=== PATIENT | male | born 1975 | race Two or more races ===

== ENCOUNTER 2018-07-25 16:56 | Emergency (ER) | payer SELFPAY ==
[2018-07-25 17:08] VITALS: BP 149/92
[2018-07-25] MEDS ORDERED: ACETAMINOPHEN 500 MG TAB PO ONE (18:15)
== END 2018-07-25 18:35 | disposition home or self-care (01) ==
LOC: EDBD 16:56 → ER 16:59
DX: S39.011A Strain of muscle, fascia and tendon of abdomen, initial encounter (principal); S86.912A Strain of unspecified muscle(s) and tendon(s) at lower leg level, left leg, initial encounter; V43.52XA Car driver injured in collision with other type car in traffic accident, initial encounter; Y93.89 Activity, other specified; Y99.8 Other external cause status; Y92.410 Unspecified street and highway as the place of occurrence of the external cause
CPT/HCPCS: 74176